=== PATIENT | male | born 1995 | race Caucasian/White ===

== ENCOUNTER 2018-07-26 16:48 | Emergency (ER) | payer OTHER ==
[~2018-07-26] VITALS: Ht 167.6 cm; Wt 63.2 kg
[2018-07-26] MEDS ORDERED: KEPPRA 500 MG500 MG PO (16:53)
[2018-07-26 17:18] VITALS: BP 118/64
== END 2018-07-26 17:19 | disposition home or self-care (01) ==
LOC: M.ERS 16:48
DX: T69.9XXA Effect of reduced temperature, unspecified, initial encounter (principal); F31.9 Bipolar disorder, unspecified; X31.XXXA Exposure to excessive natural cold, initial encounter; Y93.89 Activity, other specified; Y92.89 Other specified places as the place of occurrence of the external cause; Y99.8 Other external cause status

== ENCOUNTER 2020-05-30 15:43 | Emergency (ER) | payer MEDICAID ==
[~2020-05-30] VITALS: Ht 167.6 cm; Wt 63.5 kg
[~2020-05-30 15:43] MED LIST: KEPPRA 500 MG500 MG PO
[2020-05-30 16:14] LABS: HEMOGLOBIN 16.1 gm/dL (14.0-18.0); MCV 94.1 fL (80.0-100.0); MPV 10.1 fl. (7.2-11.1); NUCLEATED RBCS 0 /100WBC; PLATELET COUNT* 159 thou/uL (150-400); RBC 4.89 mil/uL (4.50-6.00); WBC 10.7 thou/uL (4.0-11.0)
[2020-05-30 16:21] LABS: CALCIUM 9.2 mg/dL (8.5-10.1); CREATININE 0.9 mg/dL (0.6-1.3); POTASSIUM 3.9 mmol/L (3.5-5.1)
[2020-05-30 16:26] LABS: ALBUMIN 4.3 g/dL (3.4-5.0); TOTAL BILIRUBIN 0.4 mg/dL (<0.1-1.0); TOTAL PROTEIN 7.5 g/dL (6.4-8.2)
[2020-05-30 16:51] LABS: PLATELET ESTIMATE ADEQUATE
[2020-05-30 16:52] LABS: ABSOLUTE EOSINOPHILS 0.4 thou/uL (0.0-0.7); ABSOLUTE LYMPHOCYTES 0.2 thou/uL (0.8-5.3); ABSOLUTE MONOCYTES 0.5 thou/uL (0.0-1.2); ABSOLUTE NEUTROPHILS 9.5 thou/uL (1.6-8.1)
[2020-05-30 17:48] LABS: URINE BILIRUBIN NEGATIVE (Negative); URINE BLOOD NEGATIVE (Negative); URINE CLARITY CLEAR; URINE COLOR YELLOW; URINE GLUCOSE-RANDOM NEGATIVE (Negative); URINE KETONES NEGATIVE (Negative); URINE LEUKOCYTES-REFLEX NEGATIVE (Negative); URINE NITRITE-REFLEX NEGATIVE (Negative); URINE PROTEIN NEGATIVE (Negative); URINE SPECIFIC GRAVITY 1.025 (1.005-1.030); URINE UROBILINOGEN 0.2 E.U./dl (0.2-1.0)
[2020-05-30] MEDS ORDERED: ZOFRAN ODT4 MG DISSOLVE (18:05)
[2020-05-30 18:18] VITALS: BP 100/45
--- NOTE | 2020-05-31 13:51 | EKG ---
[place] [address] ELECTROCARDIOGRAM REPORT Name: CHRISTA KUMAR Christiano Room: [facility]#: [id number] Admission: 05/30/20 Attend Phys: Discharge: 05/30/20 Date of : 89 Date of Service: 05/30/20 1610 Report #: [id number] THIS REPORT FOR: //name// [facility] ED Test Date: 2020-05-30 Test Time: 16:10:16 Pat Name: CHRISTA KUMAR Department: Room: Gender: [employer]: : 1995 Requested By: Graham Mo Order Number: [id number] MD: Quinton Wright Measurements Intervals [place] Rate: 58 P: 60 SC: 157 QRS: 93 QRSD: 116 T: 79 QT: 467 QTc: 459 Interpretive Statements Sinus rhythm Incomplete right bundle branch block Anteroseptal infarct, age indeterminate possible Baseline wander in lead(s) II,III,aVF No previous ECG available for comparison Electronically Signed On 05-31-2020 13:51:26 CDT by Quinton Wright [email or web address] <ELECTRONICALLY SIGNED> By: Quinton Wright MD, FACC 05/31/20 1351 1610 1610 Quinton Wright MD, [facility] /EPI
== END 2020-05-30 18:18 | disposition home or self-care (01) ==
LOC: M.ERS 15:43
PROVIDERS: Emergency Medicine Emergency Medical Services
DX: F12.188 Cannabis abuse with other cannabis-induced disorder (principal); R11.2 Nausea with vomiting, unspecified; F31.9 Bipolar disorder, unspecified; Z20.828 Contact with and (suspected) exposure to other viral communicable diseases